=== PATIENT | male | born 1945 | race Caucasian/White ===

== ENCOUNTER 2016-11-27 10:00 | Day surgery (SDC) | payer MEDICARE ==
[~2016-11-27] VITALS: Ht 172.7 cm; Wt 75.0 kg
[~2016-11-27 10:00] MED LIST: FISH1CAP PO; LACT1CAP37 PO; LEVO50TA PO; SUCR1TAB26 PO; VIT-3 PO; WARF4TAB PO
[2016-11-27] MEDS ORDERED: LACTATED RINGERS 1,000 ML IV SCH (10:28)
[2016-11-27 10:45] VITALS: BP 130/87
[2016-11-27] MEDS ORDERED: FENTANYL PF 250 MCG/5ML ONE (11:46)
[2016-11-27] MEDS ORDERED: MIDAZOLAM 1 MG/ML, 2ML ONE (11:46)
[2016-11-27] MEDS ORDERED: PROPOFOL 10 MG/ML, 20ML ONE (12:43)
[2016-11-27] MEDS ORDERED: SUCCINYLCHOLINE 20 MG/ML, 10ML ONE (12:43)
[2016-11-27] MEDS ORDERED: ROCURONIUM 10 MG/ML ONE (12:43)
[2016-11-27] MEDS ORDERED: OMNIPAQUE 350 MG/ML, 50 ML BOTTLE ONE (13:23)
== END 2016-11-27 15:50 | disposition home or self-care (01) ==
LOC: OUT 10:00
DX: K83.1 Obstruction of bile duct (principal); Z85.72 Personal history of non-Hodgkin lymphomas
CPT/HCPCS: 36415; 43276; 74328; 85610; C1769; C1874; J0330; J2250; J2704; J3010; J7120; Q9967

== ENCOUNTER 2017-12-10 09:53 | Day surgery (SDC) | payer MEDICARE ==
[2017-12-03 08:50] VITALS: BP 137/88
[~2017-12-10] VITALS: Ht 177.8 cm; Wt 83.6 kg
[~2017-12-10 09:53] MED LIST changes: -SUCR1TAB26 PO; +SUCR1TAB33 PO
[2017-12-10] MEDS ORDERED: LACTATED RINGERS 1,000 ML IV SCH (10:18)
[2017-12-10] MEDS ORDERED: FENTANYL PF 100 MCG/2ML ONE (12:01)
[2017-12-10] MEDS ORDERED: LIDOCAINE GEL 2%, 5ML ONE (12:02)
[2017-12-10] MEDS ORDERED: DEXAMETHASONE 4 MG/ML, 1ML ONE (12:02)
[2017-12-10] MEDS ORDERED: SUCCINYLCHOLINE 20 MG/ML, 10ML ONE (12:48)
[2017-12-10] MEDS ORDERED: ONDANSETRON ODT 8 MG ONE (12:48)
[2017-12-10] MEDS ORDERED: ROCURONIUM 10 MG/ML,10ML ONE (12:48)
[2017-12-10] MEDS ORDERED: ONDANSETRON ODT 8 MG PO PRN (13:00)
[2017-12-10] MEDS ORDERED: hydrALAzine 20 MG/ML, 1ML IV PRN (13:00)
[2017-12-10] MEDS ORDERED: SCOPOLAMINE PATCH, 1.5MG PATCH.TD72 TD PRN (13:00)
[2017-12-10] MEDS ORDERED: ALBUTEROL SULFATE 2.5 MG/3 ML NPPB PRN (13:00)
[2017-12-10] MEDS ORDERED: OXYcodone 5 MG/5 ML ORAL.SOL UDC PO PRN (13:00)
[2017-12-10] MEDS ORDERED: LABETALOL 5MG/ML, 20ML IV PRN (13:00)
[2017-12-10] MEDS ORDERED: PROMETHAZINE 25 MG/ML, 1ML IV PRN (13:00)
[2017-12-10] MEDS ORDERED: MIDAZOLAM 1 MG/ML, 2ML IV PRN (13:00)
[2017-12-10] MEDS ORDERED: MORPHINE SULFATE 4 MG/ML, 1ML IVPush PRN (13:00)
[2017-12-10] MEDS ORDERED: FENTANYL PF 100 MCG/2ML IV PRN (13:00)
[2017-12-10] MEDS ORDERED: PROMETHAZINE 12.5 MG SUPP PR PRN (13:00)
[2017-12-10] MEDS ORDERED: MEPERIDINE/PF 25MG/0.5ML IVPush PRN (13:00)
[2017-12-10] MEDS ORDERED: OMNIPAQUE 350 MG/ML, 50 ML BOTTLE ONE (13:13)
== END 2017-12-10 14:30 ==
LOC: OUT 09:53
DX: K83.1 Obstruction of bile duct (principal); D64.9 Anemia, unspecified; E78.5 Hyperlipidemia, unspecified; Z90.49 Acquired absence of other specified parts of digestive tract; Z86.718 Personal history of other venous thrombosis and embolism
CPT/HCPCS: 43260; 74328; 93005; C1769; J0330; J1100; J3010; J7120; Q0162; Q9967